=== PATIENT | male | born 1950 | race Native Hawaiian/Other Pacific Islander ===

== ENCOUNTER 2016-11-21 12:19 | Outpatient (CLI) | payer OTHER ==
[~2016-11-21 12:19] MED LIST: CARV6.25 PO; CELEXA40 MG PO; COLESTIPOL1 GM OR; FERROUS SULF325 M1 OR; FURO20TA67 PO; FURO40TA93 PO; KLOR-CON M2020 MEQ OR; LIPITOR20 MG PO; LISI5TAB10 PO; METRONIDAZOL250 MG OR; PACERONE200 MG OR; PX OMEPRAZOLE20 MG OR; QUESTRAN4 GM OR; TAMS0.4C PO
[2016-11-21 12:43] LABS: PLATELET COUNT 257 K/uL (142-355)
[2016-11-21 13:09] LABS: POTASSIUM 4.4 mmol/L (3.6-5.2)
== END 2016-11-21 19:07 | disposition home or self-care (01) ==
LOC: LABW 12:19
PROVIDERS: Internal Medicine Cardiovascular Disease
DX: E78.4 Other hyperlipidemia (principal); R60.9 Edema, unspecified; E78.00 Pure hypercholesterolemia, unspecified
CPT/HCPCS: 36415; 80048; 80061; 80076; 83880; 84443; 85027

== ENCOUNTER 2016-11-27 12:43 | Outpatient (CLI) | payer OTHER | END 2016-11-27 19:09 | disposition home or self-care (01) | LOC: RESP 12:43 | DX: I48.1 Persistent atrial fibrillation (principal) | CPT/HCPCS: 93306 ==